=== PATIENT | female | born 1975 | race Caucasian/White ===

== ENCOUNTER 2023-05-15 17:53 | Emergency (ER) | payer MEDICAID, OTHER ==
[~2023-05-15] VITALS: Ht 167.6 cm; Wt 81.0 kg
[~2023-05-15 17:53] MED LIST: ASPI-1406 PO; RIVA20TA MT; XAR15 MT
[2023-05-15 17:59] VITALS: BP 154/94; RESP 20; TEMP 98; O2SAT 96
[2023-05-15 18:00] VITALS: PULSE 83
[2023-05-15] MEDS ORDERED: RIVA20TA MT (20:44)
== END 2023-05-15 23:12 | disposition home or self-care (01) ==
LOC: ER 17:53
DX: Z76.0 Encounter for issue of repeat prescription (principal); Z90.49 Acquired absence of other specified parts of digestive tract
CPT/HCPCS: 99281